=== PATIENT | male | born 2000 | race Hispanic/Latino ===

== ENCOUNTER 2019-02-23 19:17 | Emergency (ER) | payer OTHER, SELFPAY ==
[2019-02-23] MEDS ORDERED: Acetaminophen 500 MG TAB ONE (19:30)
== END 2019-02-23 21:30 | disposition home or self-care (01) ==
LOC: ERS 19:17
DX: B34.9 Viral infection, unspecified (principal); R00.0 Tachycardia, unspecified
CPT/HCPCS: 87804; 93005

== ENCOUNTER 2019-07-04 17:40 | Inpatient (IN) | payer SELFPAY ==
[2019-07-04 18:31] LABS: #Basophils 0.1 thou/uL (0.0-0.2); #Eosinphils 0.2 thou/uL (0.0-0.7); #Lymphocytes 1.5 thou/uL (1.20-3.40); #Monocytes 0.5 thou/uL (0.11-0.59); #Neutrophils 2.6 thou/uL (1.40-6.50); %Basophils 1.1 % (0.0-1.0); %Eosinophils 4.9 % (0.0-10.0); %Lymphocytes 31.6 % (28.0-48.0); %Monocytes 9.3 % (0.0-4.0); %Neutrophils 53.1 % (31.0-61.0); Hemoglobin 15.3 g/dL (14.0-18.0); Mean Corpuscular HGB CONC 33.2 g/dL (32.0-36.0); Mean Corpuscular Hemoglobin 29.9 pg (25.0-35.0); Mean Platelet Volume 7.1 fL (7.4-10.4); Platelet Count 346 thou/uL (130-400); RBC Distribution Width 12.3 % (11.5-14.5); Red Blood Cell (RBC) Count 5.13 mill/uL (4.00-5.20); White Blood Cell (WBC) Count 4.8 thou/uL (4.8-10.8)
[2019-07-04 18:38] LABS: Bilirubin Negative (Negative); Blood, Urine Negative (Negative); Glucose, Urine (Dipstick) Negative (Negative); Leukocyte Negative (Negative); Nitrite Negative (Negative); Protein, Urine (Dipstick) Trace mg/dL (Neg-Trace)
[2019-07-04 18:39] LABS: Clarity Clear (Clear)
[2019-07-04 18:52] LABS: Amphetamine Not Detected (NotDetected); Barbiturates Screen Not Detected (NotDetected); Benzodiazepine Screen Not Detected (NotDetected); Cocaine Metabolite Screen Not Detected (NotDetected); Medtox Control Line Valid? VALID (VALID); Medtox Reader # READER 4; Methadone Not Detected (NotDetected); Methamphetamine Not Detected (NotDetected); Opiate Screen Not Detected (NotDetected); Oxycodone Screen Not Detected (NotDetected); Phencyclidine (PCP) Not Detected (NotDetected); THC/Cannabinoid Screen Not Detected (NotDetected); Tricyclic Screen Not Detected (NotDetected)
[2019-07-04 18:55] LABS: Acetaminophen Less than 6.0 mcg/mL (10.0-30.0); Alcohol Less than 10 mg/dL (Less than 10); Salicylate Less than 8.0 mg/dL (15.0-30.0)
[2019-07-04 18:58] LABS: ALT (SGPT) 451 U/L (8-55); AST (SGOT) 186 U/L (10-45); Albumin 4.7 g/dL (3.5-5.0); Alkaline Phosphatase 128 U/L (50-130); Anion Gap 14 mmol/L (10-20); BUN (Urea Nitrogen) 14 mg/dL (8.4-21.0); Bilirubin, Total 0.5 mg/dL (0.2-1.2); CK (CPK) 102 U/L (30-200); Calc. Creatinine Clearance 0 mL/min (70-130); Calcium 9.5 mg/dL (7.8-10.44); Carbon Dioxide 26 mmol/L (22-29); Chloride 105 mmol/L (98-107); Estimated GFR-MDRD Greater than 90; Globulin 3.5 g/dL (2.4-3.5); Glucose 90 mg/dL (70-105); Potassium 4.2 mmol/L (3.5-5.1); Protein, Total 8.2 g/dL (6.0-8.3); Sodium 141 mmol/L (136-145)
[2019-07-04] MEDS ORDERED: predniSONE 20 MG TAB ONE (19:06)
[2019-07-04] MEDS ORDERED: diphenhydrAMINE 25 MG CAP ONE (19:06)
[2019-07-04] MEDS ORDERED: ACETYLCYSTEINE IV SCH ×3 (20:00→21:30)
[2019-07-04] MEDS ORDERED: DEXTROSE 5% IV SCH ×3 (20:00→21:30)
[2019-07-04] MEDS ORDERED: WATER IV SCH ×3 (20:00→21:30)
--- NOTE | 2019-07-04 20:39 | PDOC.FPRHP ---
- History of Present Illness Chief Complaint: Tylenol Ingestion History of Present Illness: Pt is a 18 yo male with PMH significant for ADHD no currently taking medication who presents to the emergency department for an episode of lightheadedness, blurry vision. He states he has been experiencing headaches for the last few weeks and has been taking tylenol until today. Today he took ibuprofen. His headaches are in the temporal region without radiation, no aura, photophobia. He is unsure how much tylenol he took but does not believe he took more than 1- 2 tabs of 500 mg tylenol per day. He was found to have transaminitis and started on the tylenol overdose protocol after discussion with poison control in the emergency department. He was given steroids, diphenhydramine for itching 2/2 n-acetylcysteine. He only takes multivitamins at home. He denies drug use, sexual activity, abnormal foods, fever, chills, n/v, diarrhea, constipation. He does have influenza contacts in his family. Otherwise he is fairly asymptomatic. Denies anxiety, increased stress, depression. - Allergies/Adverse Reactions Allergies Allergy/AdvReac Type Severity Reaction Status Date / Time acetaminophen Allergy Verified 07/04/19 23:01 ibuprofen Allergy Unverified 07/04/19 19:50 naproxen Allergy Verified 07/04/19 23:01 - Home Medications Medication Instructions Recorded Confirmed Type Multivitamin [Multiple Vitamins] 1 each PO DAILY 07/04/19 07/04/19 History - History PMHx: ADHD PSHx: none FHx: Grandmother - hepatitis, Grandfather - colon cancer at 36 yo, stomach cancer at 48 yo, Mother - hx of tylenol o/d, Uncle - Colon cancer at 24 yo, Aunt - Stomach cancer Social: denies alcohol, drugs, tobacco, no recent sexual intercourse - Review of Systems General: denies: fever/chills, weight/appetite/sleep changes Eyes: reports: vision changes. denies: eye pain ENT: denies: nasal congestion, rhinorrhea Respiratory: reports: cough, congestion. denies: shortness of breath, exercise intolerance Cardiovascular: denies: chest pain, palpitation, edema Gastrointestinal: denies: nausea, vomiting, diarrhea, constipation, GI bleeding Genitourinary: denies: incontinence, dysuria Skin: denies: rashes, lesions Musculoskeletal: denies: pain, tenderness Neurological: denies: numbness, syncope Psychological: denies: anxiety, depression - Vital signs BP: 146/87 HR: 85 RR: 15 Tmax: 98.2 Pox: 96% on RA Wt: 85.5 kg - Physical Exam Constitutional: NAD, awake, alert and oriented HEENT: PERRLA, EOMI Neck: FROM, no JVD Heart: RRR, normal S1/S2, no edema Lungs: CTAB, no respiratory distress, no wheezing Abdomen: soft, non-tender Musculoskeletal: normal structure, normal tone Neurological: no focal deficit, CN II-XII intact, normal sensation Skin: no rash/lesions, capillary refill <2 seconds Heme/Lymphatic: no purpura, no petechia Psychiatric: good judgment and insight -Psychiatric: Flat affect, makes eye contact FMR H&P: Results - Labs Result Diagrams: 07/04/19 18:23 07/04/19 18:23 Lab results: WBC 4.8 thou/uL (4.8-10.8) 07/04/19 18:23 Hgb 15.3 g/dL (14.0-18.0) 07/04/19 18:23 Hct 46.2 % (42.0-52.0) 07/04/19 18: MCV 90.0 fL (78.0-98.0) 07/04/19 18:23 Plt Count 346 thou/uL (130-400) 07/04/19 18:23 Neutrophils % 53.1 % (31.0-61.0) 07/04/19 18:23 Sodium 141 mmol/L (136-145) 07/04/19 18:23 Potassium 4.2 mmol/L (3.5-5.1) 07/04/19 18:23 Chloride 105 mmol/L (98-107) 07/04/19 18:23 Carbon Dioxide 26 mmol/L (22-29) 07/04/19 18:23 BUN 14 mg/dL (8.4-21.0) 07/04/19 18:23 Creatinine 0.88 mg/dL (0.7-1.3) 07/04/19 18:23 Glucose 90 mg/dL (70-105) 07/04/19 18:23 Lactic Acid 0.8 mmol/L (0.5-2.2) 07/04/19 19:15 Calcium 9.5 mg/dL (7.8-10.44) 07/04/19 18:23 Total Bilirubin 0.5 mg/dL (0.2-1.2) 07/04/19 18:23 AST 186 U/L (10-45) H 07/04/19 18:23 ALT 451 U/L (8-55) H 07/04/19 18:23 Alkaline Phosphatase 128 U/L (50-130) 07/04/19 18:23 Creatine Kinase 102 U/L (30-200) 07/04/19 18:23 Serum Total Protein 8.2 g/dL (6.0-8.3) 07/04/19 18:23 Albumin 4.7 g/dL (3.5-5.0) 07/04/19 18:23 Urine Ketones Trace mg/dL (Negative) A 07/04/19 18:26 Urine Blood Negative (Negative) 07/04/19 18:26 Urine Nitrite Negative (Negative) 07/04/19 18:26 Ur Leukocyte Esterase Negative (Negative) 07/04/19 18:26 FMR H&P: A/P - Problem List (1) Unintentional Tylenol overdose Current Visit: No Status: Acute Code(s): T39.1X1A - POISONING BY 4- AMINOPHENOL DERIVATIVES, ACCIDENTAL, INIT (2) Transaminitis Current Visit: No Status: Acute Code(s): R74.0 - NONSPEC ELEV OF LEVELS OF TRANSAMNS & LACTIC ACID DEHYDRGNSE - Plan Pt is a 18 yo male here for: # Tylenol Overdose Unknown ingested amount. Pt denies ingesting enough to cause toxicity. Poison control contacted and advised still adminstering n-acetylcysteine per protocol. Initial dose of n-acetylcysteine given at 2125 07/04/19. - tylenol overdose protocol initiated: N-acetylcysteine 150 mg/kg over 1 hour then 50 mg/kg over 4 hours then 100 mg/kg over 16 hours. Repeat liver enzymes at 19 hours - will discuss incident more with pt when mother is not involved. She controlled conversation. Mother also has a suicide attempt with tylenol ingestion. - diphenhydramine prn itching, steroids already given # Transaminitis - as above - Hepatitis A,B,C pending - RUQ u/s pending # Frontal Headache - resolved by time of interview Does not appear to be migraines - assess for increased stressors, will be worth discussing possible anxiety/ depression even though initially denied - no red flag symptoms # Family hx of colon cancer at young age - likely needs colonoscopy in outpt setting assuming this is not related to transaminitis Fluids: none Diet: Reg VTE: scd's Code: full Dispo: Admit to inpatient FMR H&P: Upper Level - Pertinent history 18 year old male presents to ED with vision changes and fatigue after taking ibuprofen for headache today. Patient has had intermittent frontal headaches for 2 weeks. He has been taking tylenol and ibuprofen. Patient states that he has taken a max of one tylenol per day, but he appears to be a poor historian in that regard. Mother states she has a bottle of extra strength tylenol at home that him and his brother share. The bottle is now empty as of today. Mother states that it was not completely full, but is uncertain how much was in it prior to these last few weeks. Mother had suicide attempt in the past by ingesting tylenol, so she was concerned. Patient has not had any history of depression in the past. He works at [employer] and has been exposed to sick contacts recently. Aside from hoarse voice and nasal congestion, he is not exhibiting many signs of infection. He does have siblings at home who have been exposed to the flu. Patient denies being sexually active currently. He has been in the past. Patient with history of ADHD, but not on any medications. Patient has had significant fatigue and has been sleeping more over the last few weeks. Poison control was called in ED. Patient started on NAC and labs to be drawn according to protocol. Acetaminophen level negative, but patient with unknown timing of possible ingestion. - Pertinent findings General: Alert and oriented x3. No acute distress. HEENT: MMM, no pharyngeal erythema, TM clear with visible cone of light, PERRL Card: RRR, no murmur Resp: CTA bilaterally, no acute distress Abdomen: Soft, non-tender to palpation Ext: No swelling or cyanosis - Plan Date/Time: 07/04/192038 IDomonique, have evaluated this patient and agree with findings/plan as outlined by paid intern resident. Pertinent changes/additions are listed here. Suspected acetaminophen toxicity with hepatotoxicity - Poison Control contacted by ED and Primary Team - Recommendations: 150 mg/kg NAC in hour 1, 50 mg/kg over hours 2-5, redraw CMP at hour 19 and if liver enzymes not back to normal range, then patient will be given 100 mg/kg over 16 hours - Will obtain RUQ ultrasound to further evaluate - Will obtain hepatitis panel - Acetaminophen level neg; but poison control reports they have seen it negative before, and liver enzymes can still continue to rise - Patient poor historian; mother in room, so not sure if patient being completely truthful about amount of ingestion - Screen for depression - Will place on telemetry for continued monitoring - PT/PTT/INR pending Transaminitis likely 2/2 acetaminophen ingestion/toxicity - See plan as above - Will obtain RUQ sono and hepatitis panel to further evaluate - Repeat CMP in 19 hours Recurrent frontal headaches - Patient states headache absent currently, they come and go and are not associated with any particular trigger - Continue to monitor - Headache protocol as appropriate - No red flag symptoms - Not consistent with migraines ADHD - Not on medication Suspect depression - Flat affect noted during evaluation - Patient poor historian when it came to timing and amount of ingestion - FH of depression with suicide attempt (mother) - Screen for depression FH colon cancer - Extensive family history with one relative diagnosed in 20's with colostomy - Recommend outpatient colonoscopy DVT PPX: SCD's GI PPX: None Code Status: Full Dispo: Admit to telemetry. Anticipate LOS >48 hours.
[2019-07-04 22:18] LABS: HBSAB Concentration 0.92 mIU/mL; HBSAg Index 0.19 S/CO (0-0.99); Hep B Core Total Ab Non-Reactive (NonReactive); Hep B Core Total Index 0.05 S/CO (0-0.79); Hep B Surf AB Non-Reactive (NonReactive); Hep B Surf Ag Non-Reactive S/CO (NonReactive); Hep C IgG Ab Non-Reactive (NonReactive); Hep C Index 0.11 S/CO (0-0.79)
[2019-07-04 23:09] VITALS: BMI 30.6
[2019-07-04] MEDS ORDERED: Lactated Ringer's 1,000 ML IV SCH (23:15)
[2019-07-04 23:37] LABS: Prothrombin Time 13.1 SEC (12.0-14.7)
[2019-07-04 23:38] LABS: Phosphorus 1.7 mg/dL (2.3-4.7)
[2019-07-04] MEDS ORDERED: diphenhydrAMINE 25 MG in Sodium Chloride 0.9% 50 ML IVPB PRN ×2 (23:43→23:45)
[2019-07-04] MEDS ORDERED: diphenhydrAMINE 50 MG/ML VIAL IVP PRN (23:50)
[2019-07-04] MEDS ORDERED: PHOS-NAK 1 PKT PACK PO SCH (23:59)
[2019-07-05] MEDS ORDERED: DEXTROSE 5% IV SCH (02:30)
[2019-07-05] MEDS ORDERED: WATER IV SCH (02:30)
[2019-07-05] MEDS ORDERED: ACETYLCYSTEINE IV SCH (02:30)
--- NOTE | 2019-07-05 05:54 | PDOC.FM ---
- Subjective Subjective: Pt denies headache this morning Complains of 10/10 periumbilical abdominal pain - denies n/v/d/c. States this all happened this morning No fevers, chills, or acute events overnight. Mother and pt informed us that when he was taking the tylenol consistently it was 1.5mo ago when he had influenza. - Objective Vital Signs & Weight: Vital Signs (12 hours) Temp Pulse Resp BP Pulse Ox 07/05/19 03:19 98.1 F 74 14 119/58 L 96 07/05/19 00:00 95 07/04/19 22:46 99.1 F 78 17 127/67 95 Weight Weight 86.046 kg I&O: 07/03/19 07/04/19 07/05/19 06:59 06:59 06:59 Intake Total 980 Output Total 300 Balance 680 Result Diagrams: 07/04/19 18:23 07/04/19 18:23 Phys Exam - Physical Examination Constitutional: NAD HEENT: moist MMs, sclera anicteric Neck: full ROM Respiratory: clear to auscultation bilateral Cardiovascular: RRR, no significant murmur Gastrointestinal: soft, no distention, positive bowel sounds Periumbilical tenderness with deep palpation, no peritoneal signs Musculoskeletal: no edema, pulses present Neurological: non-focal, moves all 4 limbs Psychiatric: A&O x 3 Deviation from normal: Flat affect Skin: no rash, cap refill <2 seconds Dx/Plan (1) Transaminitis Code(s): R74.0 - NONSPEC ELEV OF LEVELS OF TRANSAMNS & LACTIC ACID DEHYDRGNSE Status: Acute (2) Unintentional Tylenol overdose Code(s): T39.1X1A - POISONING BY 4-AMINOPHENOL DERIVATIVES, ACCIDENTAL, INIT Status: Acute Qualifiers: Encounter type: initial encounter Qualified Code(s): T39.1X1A - Poisoning by 4-Aminophenol derivatives, accidental (unintentional), initial encounter (3) Persistent headaches Code(s): R51 - HEADACHE Status: Acute - Plan Plan: Pt is a 18 yo male here for: Suspected Tylenol Overdose - Initial dose of n-acetylcysteine given at 2125 07/04/19. - Tylenol overdose protocol initiated: - Pt has received N-acetylcysteine 150 mg/kg over 1 hour then 50 mg/kg over 4 hours - Currently receiving 100 mg/kg over 16 hours. Repeat liver enzymes at 19 hours following initiation of therapy - Diphenhydramine prn itching Transaminitis - Abdominal pain - Hepatitis A,B,C panel negative - HIV/RPR ordered - CT abdomen this morning Frontal Headache - Described as tension headache characteristics - No red flag symptoms Family hx of colon and gastric cancers at young age - Will need colonoscopy in outpt setting Fluids: None Diet: Reg VTE: Scd's Code: Full Dispo: Admit to inpatient for NAC and abdominal pain monitoring and evaluation.
[2019-07-05 07:50] LABS: HIV (1/2) Antibody/Antigen Non-Reactive (NonReactive); HIV 1/2 INDEX 0.16 S/CO (<1.00); Syphilis Antibody Nonreactive (Nonreactive); Syphilis Antibody Index 0.07 S/CO (<1.00 Non-Reactive)
--- NOTE | 2019-07-05 10:34 | CT ---
CT abdomen and pelvis with IV and oral contrast HISTORY: Abnormal liver function tests. Abdomen pain. FINDINGS: The superiormost images show ill-defined parenchymal infiltrate within the lateral basilar segment of the left lower lobe. No pleural fluid. The liver, spleen, right kidney, adrenal glands, and pancreas have a normal CT appearance. Tiny cyst within the medial cortex of the left kidney. No evidence of bowel obstruction. Appendix is not inflamed. Urinary bladder is unremarkable. IMPRESSION: Left lateral lung base infiltrate. Consider pneumonia. No acute abnormalities of the abdomen demonstrated.
[2019-07-05 10:44] LABS: MONO NEGATIVE CONTROL ZONE White (Negative) (White); MONO POSITIVE CONTROL Pink Line (Positive) (PINK/RED); Mononucleosis NEGATIVE (NEGATIVE)
[2019-07-05] MEDS ORDERED: Azithromycin 250 MG TAB PO SCH (12:00)
[2019-07-05] MEDS ORDERED: Iopamidol 370 76% 100 ML VIAL ONE (14:33)
[2019-07-05 18:48] LABS: ALT (SGPT) 369 U/L (8-55); AST (SGOT) 129 U/L (10-45); Acetaminophen Less than 6.0 mcg/mL (10.0-30.0); Albumin 4.3 g/dL (3.5-5.0); Alkaline Phosphatase 124 U/L (50-130); Anion Gap 12 mmol/L (10-20); BUN (Urea Nitrogen) 11 mg/dL (8.4-21.0); Bilirubin, Total 0.3 mg/dL (0.2-1.2); Calc. Creatinine Clearance 193 mL/min (70-130); Carbon Dioxide 23 mmol/L (22-29); Chloride 107 mmol/L (98-107); Estimated GFR-MDRD Greater than 90; Globulin 3.3 g/dL (2.4-3.5); Glucose 134 mg/dL (70-105); Magnesium 1.8 mg/dL (1.7-2.2); Phosphorus 2.9 mg/dL (2.3-4.7); Potassium 3.4 mmol/L (3.5-5.1); Protein, Total 7.6 g/dL (6.0-8.3); Sodium 139 mmol/L (136-145)
[2019-07-05] MEDS ORDERED: DEXTROSE 5% IVPB SCH (20:45)
[2019-07-05] MEDS ORDERED: ACETYLCYSTEINE IVPB SCH (20:45)
[2019-07-05] MEDS ORDERED: WATER IVPB SCH (20:45)
[2019-07-05] MEDS: ACETYLCYSTEINE IV SCH ×2 (21:23→21:48)
[2019-07-05] MEDS: DEXTROSE 5% IV SCH ×2 (21:23→21:48)
[2019-07-05] MEDS: WATER IV SCH ×2 (21:23→21:48)
--- NOTE | 2019-07-06 04:23 | HP ---
HISTORY OF PRESENT ILLNESS: Please see the history and physical done by the residents, for which I agree as well. A kind of an unusual case. This gentleman came in with a lot of vague symptoms. It sounds like he got very hot and flushed at work and has recently been having headaches. He was given ibuprofen for headache. Before this, has never had a reaction to ibuprofen. He admits that he has been coughing a little bit lately. It was unclear if this was fever or what it was. He felt just overall weak, almost near syncope, called his mom, then went to the emergency room and was found to have elevated liver function tests. There was some question that this could potentially be from Tylenol overdose, although it does not sound like he is really taking Tylenol consistently since he had flu some 6 to 8 weeks ago, but nonetheless, Poison Control was called and acetylcysteine was started and he is on the Tylenol protocol for that. The Tylenol level was basically 0. But on exam, did have some crackles in the left base consistent with pneumonia, even though he is not coughing that much and not really having fevers. White count is normal, but the CT picked that up that he has an infiltrate there. PAST MEDICAL HISTORY: All per the resident's history and physical, for which I agree. PAST SURGICAL HISTORY: All per the resident's history and physical, for which I agree. FAMILY HISTORY: All per the resident's history and physical, for which I agree. ALLERGIES: ALL PER THE RESIDENT'S HISTORY AND PHYSICAL, FOR WHICH I AGREE. REVIEW OF SYSTEMS: All per the resident's history and physical, for which I agree. PHYSICAL EXAMINATION: VITAL SIGNS: Afebrile. Vital signs are stable. GENERAL: Alert and oriented x3. No apparent distress. HEENT: Anicteric. ENT is normal otherwise. CHEST: Does have some crackles in the left base, even a little bit of wheeze down there. HEART: Regular rate and rhythm. ABDOMEN: Benign. I do not really appreciate hepatosplenomegaly. EXTREMITIES: No edema. ASSESSMENT: 1. Elevated liver function tests, unclear etiology, viral, etc. 2. Left lower lobe infiltrate, assuming community-acquired pneumonia. PLAN: I am going to cover him with a Z-Taj and go ahead and finish the Tylenol overdose potential protocol. Recheck liver function tests this afternoon. As long as they are okay after 19 hours, should be able to be discharged home, and we can just follow his liver function tests as an outpatient and will also follow lung function and lung exam as an outpatient as well. Job ID: [id number]
--- NOTE | 2019-07-06 08:13 | ULT ---
RIGHT UPPER QUADRANT ULTRASOUND: Date: 07/06/2019 INDICATION: Elevated LFTs and periumbilical abdominal pain. COMPARISON: CT abdomen and pelvis dated 07/05/2019. FINDINGS: There is diffuse fatty infiltration with scattered areas of focal fatty sparing predominantly within the left hepatic lobe. The gallbladder is normal appearing. No sonographic Lee's sign reported. Co mmon bile duct measures 4.6 mm. Pancreas largely obscured. Right kidney measures 10.4 x 5.2 x 5.7 cm. No focal renal lesion is evident. No free fluid is evident. IMPRESSION: 1. Fatty infiltration with areas of focal fatty sparing within the left hepatic lobe. 2. No additional acute sonographic abnormality. POS: BH
[2019-07-06] MEDS ORDERED: Azithromycin 250 MG TAB PO SCH ×2 (09:00)
[2019-07-06 09:58] LABS: Cardiac Risk 3.7 (Less than 4.5)
--- NOTE | 2019-07-06 11:07 | PDOC.FM ---
- Subjective Subjective: Pt doing well with no abdominal pain. no fever/chills, no nausea/vomiting - Objective Vital Signs & Weight: Vital Signs (12 hours) Temp Pulse Resp BP Pulse Ox 07/06/19 09:09 98.1 F 63 15 119/66 94 L 07/06/19 03:49 97.4 F L 87 17 126/67 96 Weight Weight 86.046 kg I&O: 07/05/19 07/06/19 07/07/19 06:59 06:59 06:59 Intake Total 1100 Output Total 300 Balance 800 Result Diagrams: 07/04/19 18:23 07/05/19 18:15 Phys Exam - Physical Examination Constitutional: NAD HEENT: moist MMs, sclera anicteric Neck: supple, full ROM Respiratory: no wheezing, clear to auscultation bilateral Cardiovascular: RRR, no significant murmur Gastrointestinal: soft, non-tender Musculoskeletal: no edema, pulses present Neurological: normal sensation, moves all 4 limbs Psychiatric: normal affect, A&O x 3 Skin: no rash, normal turgor Dx/Plan (1) Unintentional Tylenol overdose Code(s): T39.1X1A - POISONING BY 4-AMINOPHENOL DERIVATIVES, ACCIDENTAL, INIT Status: Acute Qualifiers: Encounter type: initial encounter Qualified Code(s): T39.1X1A - Poisoning by 4-Aminophenol derivatives, accidental (unintentional), initial encounter (2) Persistent headaches Code(s): R51 - HEADACHE Status: Acute (3) Transaminitis Code(s): R74.0 - NONSPEC ELEV OF LEVELS OF TRANSAMNS & LACTIC ACID DEHYDRGNSE Status: Acute - Plan Plan: Suspected Tylenol Overdose A- liver enzymes improving but merriting continued NAC Tx. Currently receiving 100 mg/kg over 16 hours. This regimen will be completed at 1830 today. P- continue NAC -will contact poison controll for further recs -possible DC tonight - Diphenhydramine prn itching Transaminitis - Abdominal pain A- likely 2/2 above. US this AM showed fatty infiltration. Hepatitis A,B,C panel negative. HIV/RPR negative. CT abd unremarkable. P- continue plan as above -advised healthy diet Frontal Headache - Described as tension headache characteristics. No red flag symptoms Family hx of colon and gastric cancers at young age - Will need colonoscopy in outpt setting Code: Full Addendum - Attending - Attending Attestation Date/Time: 07/06/19 1121 I personally evaluated the patient and discussed the management with Dr. Romero. I agree with the History, Examination, Assessment and Plan documented above with any addition or exceptions noted below. The etiology of his liver injury is not completely clear. He was certainly taking more than recommended APAP during the flu, with at least 4g/day for ~1 week per mother. No reported ETOH. He did not have nausea/vomiting during this time. Fatty liver noted on sono. Negative infectious workup. Would repeat labs per protocol and include AI workup with outpatient follow up after touching base with poison control. Does not need tele currently.
[2019-07-06 17:18] LABS: ALT (SGPT) 467 U/L (8-55); AST (SGOT) 168 U/L (10-45); Acetaminophen Less than 6.0 mcg/mL (10.0-30.0); Albumin 4.3 g/dL (3.5-5.0); Alkaline Phosphatase 125 U/L (50-130); Anion Gap 12 mmol/L (10-20); BUN (Urea Nitrogen) 10 mg/dL (8.4-21.0); Bilirubin, Total 0.6 mg/dL (0.2-1.2); Calc. Creatinine Clearance 193 mL/min (70-130); Calcium 9.2 mg/dL (7.8-10.44); Carbon Dioxide 26 mmol/L (22-29); Chloride 105 mmol/L (98-107); Estimated GFR-MDRD Greater than 90; Globulin 3.2 g/dL (2.4-3.5); Glucose 97 mg/dL (70-105); Potassium 3.6 mmol/L (3.5-5.1); Protein, Total 7.5 g/dL (6.0-8.3); Sodium 139 mmol/L (136-145)
--- NOTE | 2019-07-06 19:30 | PDOC.EVN ---
Event Note - Event Note Event Note: Discussed case with Poison Control Staff and Security Tester at Poison Control after receiving an AST level > 93 although the INR was WNL. Security Tester believes if pt had an actual tylenol overdose the damage to the liver would have already taken effect at this time and the transaminitis could be secondary to other pathology. He recommended repeating CMP, phosphorous, lactic acid, and INR in the morning as well as monitoring mental status. Of note pt does have fatty infiltration on a RUQ U/S.
[2019-07-07 05:20] LABS: INR-International Normal Ratio 0.9; Prothrombin Time 12.6 SEC (12.0-14.7)
[2019-07-07 05:54] LABS: Lactic Acid 0.9 mmol/L (0.5-2.2)
[2019-07-07 06:07] LABS: ALT (SGPT) 462 U/L (8-55); AST (SGOT) 169 U/L (10-45); Albumin 4.1 g/dL (3.5-5.0); Alkaline Phosphatase 113 U/L (50-130); Anion Gap 11 mmol/L (10-20); BUN (Urea Nitrogen) 12 mg/dL (8.4-21.0); Bilirubin, Total 0.6 mg/dL (0.2-1.2); Calc. Creatinine Clearance 207 mL/min (70-130); Calcium 9.2 mg/dL (7.8-10.44); Carbon Dioxide 26 mmol/L (22-29); Chloride 107 mmol/L (98-107); Estimated GFR-MDRD Greater than 90; Glucose 86 mg/dL (70-105); Protein, Total 7.1 g/dL (6.0-8.3); Sodium 140 mmol/L (136-145)
--- NOTE | 2019-07-07 08:23 | PDOC.FM ---
- Subjective Subjective: Doing well overnight, no GI sx. no acute events no abdominal pain, no nausea/vomiting, no fever/chills - Objective Vital Signs & Weight: Vital Signs (12 hours) Temp Pulse Resp BP Pulse Ox 07/07/19 04:00 97.5 F L 80 16 109/60 96 07/07/19 00:00 65 18 Weight Weight 86.046 kg Result Diagrams: 07/04/19 18:23 07/07/19 04:35 Phys Exam - Physical Examination Constitutional: NAD HEENT: moist MMs, sclera anicteric Neck: supple, full ROM Respiratory: no wheezing, clear to auscultation bilateral Cardiovascular: RRR, no significant murmur Gastrointestinal: soft, non-tender Musculoskeletal: no edema, pulses present Neurological: normal sensation, moves all 4 limbs Psychiatric: normal affect, A&O x 3 Skin: no rash, normal turgor Dx/Plan (1) Unintentional Tylenol overdose Code(s): T39.1X1A - POISONING BY 4-AMINOPHENOL DERIVATIVES, ACCIDENTAL, INIT Status: Acute Qualifiers: Encounter type: initial encounter Qualified Code(s): T39.1X1A - Poisoning by 4-Aminophenol derivatives, accidental (unintentional), initial encounter (2) Persistent headaches Code(s): R51 - HEADACHE Status: Acute (3) Transaminitis Code(s): R74.0 - NONSPEC ELEV OF LEVELS OF TRANSAMNS & LACTIC ACID DEHYDRGNSE Status: Acute - Plan Plan: Suspected Tylenol Overdose A- Last night AST/ALT had worsened, discussed with retail furniture sales with poison controll. This could be new baseline of liver enzymes. Likely multifactoral tylenol OD and fatty liver infiltration. P- pt ready for DC home and outpt f/u -f/u on autoimmune labs Transaminitis - Abdominal pain A- likely 2/2 above P- continue plan as above -advised healthy diet Frontal Headache - Described as tension headache characteristics. No red flag symptoms Family hx of colon and gastric cancers at young age - Will need colonoscopy in outpt setting Code: Full Addendum - Attending - Attending Attestation Date/Time: 07/07/19 1150 I personally evaluated the patient and discussed the management with Dr. Romero. I agree with the History, Examination, Assessment and Plan documented above with any addition or exceptions noted below.
[2019-07-07 12:27] VITALS: BP 115/73; TEMP 98.2
[2019-07-07 15:34] LABS: Ref Lab Test Ordered SLA; Reference Lab Name LABCORP
[2019-07-07 15:35] LABS: Reference Lab Name LABCORP
[2019-07-08 14:13] LABS: Smooth Muscle Total ABS 8 Units (0-19)
--- NOTE | 2019-07-08 16:39 | DIS ---
DATE OF ADMISSION: 07/04/2019 DATE OF DISCHARGE: 07/07/2019 ADMITTING ATTENDING: Dr. Bret Rojas. DISCHARGE ATTENDING: Adolfo Barnhart MD RESIDENT: Maco Romero MD I personally saw the patient for a total of 2 days. CONSULTS: Poison Control. PROCEDURES: 1. Abdomen pelvis CT on 07/05/2019; impression, left lateral lung base infiltrate, consider pneumonia. No abnormalities of abdomen demonstrated. 2. On 07/06/2019, abdomen ultrasound; impression, fatty infiltration of liver with areas of focal fatty sparing within the left hepatic lobe. No additional sonographic abnormality. DISCHARGE MEDICATIONS: Multivitamin. DISCONTINUED MEDICATIONS: None. PRIMARY DIAGNOSIS: Elevated transaminases secondary to Tylenol overdose, unintentional. SECONDARY DIAGNOSES: Fatty liver disease and family history of colon and gastric cancers at young age. HISTORY OF PRESENT ILLNESS AND HOSPITAL COURSE: This is a 18-year-old male who presented to the ER and was found to have elevated AST and ALT. It was later found out that the patient had ingested an exorbitant amount of Tylenol 1 month prior to presentation. During the week that he had the flu, he was taking at least 6 g of Tylenol per day for about a week or week and a half, though the patient was a relatively poor historian. The patient was started on NAC protocol per recommendations of Poison Control. He completed this regimen, but then had an additional 16 hours of NAC as his liver enzymes were still elevated, though they were downtrending. After this additional 16 hours, enzymes remained somewhat high. An ultrasound of the right upper quadrant showed a fatty liver and so I thought that his elevated transaminases were secondary to a multifactorial etiology including the Tylenol ingestion and fatty liver. Poison Control was consulted again, which recommended outpatient followup and autoimmune hepatitis labs. Of note, a CT scan did show evidence of possible pneumonia in the lower lobe; however, the patient was asymptomatic and not showing clinical signs of pneumonia and was discharged without antibiotics. DISPOSITION: Stable. DISCHARGE INSTRUCTIONS: 1. Location: Home. 2. Activity: As tolerated. 3. Followup: Follow up with [facility] in 7 days. Job ID: [id number]
[2019-07-09 12:29] LABS: ANA Symphony (Qualitative) Negative (Negative); ANA Symphony (Quantitative) 0.2 Ratio (< 0.7 Negative); EliA Vaculitis New Method **** NEW METHOD ****; Mitochondrial Ab 1.1 U/mL (<4 Negative); dsDNA IgG Antibody 0.8 IU/mL (<10 Negative)
[2019-07-09 13:14] LABS: Cytoplasmic (C-ANCA) <1:20 titer (Neg:<1:20); Myeloperoxidase AutoAbs <9.0 U/mL (0.0-9.0); Perinuclear (P-ANCA) <1:20 titer (Neg:<1:20); Proteinase-3 AutoAbs Less than 3.5 U/mL (0.0-3.5)
== END 2019-07-07 15:50 | disposition home or self-care (01) | DRG 918 ==
LOC: ERS 17:40 → OBSVTOIN 19:41 → 2SW 19:41 → 2NO 07-05 14:23 → T4-A 07-07 09:51
PROVIDERS: ADMIT Family Medicine; ATTEND Family Medicine
DX: T39.1X1A Poisoning by 4-Aminophenol derivatives, accidental (unintentional), initial encounter (principal); K76.0 Fatty (change of) liver, not elsewhere classified; F90.9 Attention-deficit hyperactivity disorder, unspecified type; R51 Headache; R74.0 Nonspecific elevation of levels of transaminase and lactic acid dehydrogenase [LDH]; Z80.0 Family history of malignant neoplasm of digestive organs; Z88.6 Allergy status to analgesic agent
CPT/HCPCS: 36415; 74177; 76705; 80053; 80061; 80306; 80307; 81003; 82550; 83516; 83520; 83605; 83735; 84100; 84443; 85025; 85610; 86038; 86225; 86256; 86308; 86704; 86706; 86708; 86780; 86803; 87340; 87389; 93005; 96365; J0132; J1200; J7070; J7512; Q0163; Q9967

== ENCOUNTER 2020-04-01 13:08 | Emergency (ER) | payer SELFPAY | END 2020-04-01 14:32 | disposition home or self-care (01) | LOC: ERS 13:08 | DX: L60.0 Ingrowing nail (principal) | CPT/HCPCS: 99283 ==

== ENCOUNTER 2020-05-26 18:17 | Emergency (ER) | payer SELFPAY ==
[2020-05-27 06:45] LABS: SARS-CoV-2 PCR by NAA Not Detected (NotDetected)
== END 2020-05-26 19:54 | disposition home or self-care (01) ==
LOC: ERS 18:17
DX: R43.8 Other disturbances of smell and taste (principal); Z20.822 Contact with and (suspected) exposure to COVID-19
CPT/HCPCS: 87635; 99283; U0003; U0005

== ENCOUNTER 2020-08-02 08:12 | Emergency (ER) | payer SELFPAY | END 2020-08-02 10:42 | disposition home or self-care (01) | LOC: ERS 08:12 | DX: L60.0 Ingrowing nail (principal); K76.0 Fatty (change of) liver, not elsewhere classified | CPT/HCPCS: 99283 ==

== ENCOUNTER 2022-06-02 23:58 | Emergency (ER) | payer SELFPAY ==
[2022-06-03] MEDS ORDERED: diphenhydrAMINE 25 MG CAP ONE (00:24)
[2022-06-03] MEDS ORDERED: Famotidine 20 MG TAB ONE (00:24)
[2022-06-03] MEDS ORDERED: Dexamethasone 4 MG TAB ONE (01:49)
== END 2022-06-03 02:21 | disposition home or self-care (01) ==
LOC: ERS 23:58
DX: L50.9 Urticaria, unspecified (principal)
CPT/HCPCS: 71045; 93005; J8540

== ENCOUNTER 2022-09-03 09:36 | Emergency (ER) | payer SELFPAY ==
[2022-09-03 10:48] LABS: #Eosinphils 0.1 thou/uL (0.0-0.7); #Monocytes 0.5 thou/uL (0.11-0.59); #Neutrophils 4.5 thou/uL (1.40-6.50); %Basophils 0.4 % (0.0-1.0); %Monocytes 7.3 % (0.0-10.0); %Neutrophils 63.9 % (42.0-75.0); Mean Corpuscular HGB CONC 31.5 g/dL (32.0-36.0); Mean Corpuscular Hemoglobin 28.7 pg (27.0-31.0); Mean Corpuscular Volume 91.2 fl (78.0-98.0); Mean Platelet Volume 9.5 fL (7.4-10.4); Platelet Count 338 10x3/uL (130-400); RBC Distribution Width 12.7 % (11.5-14.5); Red Blood Cell (RBC) Count 5.22 mill/uL (4.70-6.10)
[2022-09-03 11:17] LABS: ALT (SGPT) 156 U/L (8-55); AST (SGOT) 58 U/L (5-34); Albumin 4.8 g/dL (3.5-5.0); Alkaline Phosphatase 98 U/L (40-110); Anion Gap 12 mmol/L (10-20); BUN (Urea Nitrogen) 15 mg/dL (8.9-20.6); Bilirubin, Total 0.5 mg/dL (0.2-1.2); Calc. Creatinine Clearance 0 mL/min (70-130); Carbon Dioxide 26 mmol/L (22-29); Chloride 105 mmol/L (98-107); Estimated GFR 128; Globulin 3.5 g/dL (2.4-3.5); Glucose 94 mg/dL (70-105); Lipase 10 U/L (8-78); Potassium 4.3 mmol/L (3.5-5.1); Protein, Total 8.3 g/dL (6.0-8.3); Sodium 139 mmol/L (136-145)
== END 2022-09-03 12:20 | disposition home or self-care (01) ==
LOC: ERS 09:36
DX: K52.9 Noninfective gastroenteritis and colitis, unspecified (principal)
CPT/HCPCS: 36415; 80053; 83690; 85025; 99284

== ENCOUNTER 2023-01-09 08:11 | Emergency (ER) | payer SELFPAY ==
[2023-01-09 09:50] LABS: #Eosinphils 0.2 thou/uL (0.0-0.7); #Monocytes 0.5 thou/uL (0.11-0.59); #Neutrophils 3.6 thou/uL (1.40-6.50); %Basophils 0.3 % (0.0-1.0); %Eosinophils 2.6 % (0.0-10.0); %Lymphocytes 29.2 % (21.0-51.0); %Monocytes 7.9 % (0.0-10.0); %Neutrophils 59.7 % (42.0-75.0); Hematocrit 44.2 % (42.0-52.0); Hemoglobin 14.8 g/dL (14.0-18.0); Mean Corpuscular HGB CONC 33.5 g/dL (32.0-36.0); Mean Corpuscular Volume 89.7 fl (78.0-98.0); Mean Platelet Volume 9.3 fL (7.4-10.4); Platelet Count 319 10x3/uL (130-400); RBC Distribution Width 12.9 % (11.5-14.5); Red Blood Cell (RBC) Count 4.93 mill/uL (4.70-6.10); White Blood Cell (WBC) Count 6.1 10x3/uL (4.8-10.8)
[2023-01-09] MEDS ORDERED: Ondansetron PF 4 MG/2 ML Vial ONE (10:19)
[2023-01-09] MEDS ORDERED: Famotidine/PF 20 mg/2ml Vial ONE (10:19)
[2023-01-09 10:25] LABS: ALT (SGPT) 174 U/L (8-55); AST (SGOT) 70 U/L (5-34); Albumin 4.6 g/dL (3.5-5.0); Alkaline Phosphatase 97 U/L (40-110); Anion Gap 13 mmol/L (10-20); BUN (Urea Nitrogen) 18 mg/dL (8.9-20.6); Bilirubin, Total 0.6 mg/dL (0.2-1.2); Calc. Creatinine Clearance 0 mL/min (70-130); Calcium 9.6 mg/dL (7.8-10.44); Carbon Dioxide 25 mmol/L (22-29); Chloride 105 mmol/L (98-107); Estimated GFR 127; Globulin 3.3 g/dL (2.4-3.5); Glucose 93 mg/dL (70-105); Protein, Total 7.9 g/dL (6.0-8.3); Sodium 139 mmol/L (136-145)
[2023-01-09 10:26] LABS: Troponin I Less than 0.010 ng/mL (< 0.028)
== END 2023-01-09 11:04 | disposition home or self-care (01) ==
LOC: ERS 08:11
DX: K92.0 Hematemesis (principal); R51.9 Headache, unspecified; R79.89 Other specified abnormal findings of blood chemistry
CPT/HCPCS: 70450; 71045; 80053; 84484; 85025; 93005; J2405; S0028

== ENCOUNTER 2023-06-15 21:34 | Emergency (ER) | payer SELFPAY ==
[2023-06-15] MEDS ORDERED: diphenhydrAMINE 50 MG/ML VIAL ONE (23:28)
[2023-06-15] MEDS ORDERED: Acetaminophen 500 MG TAB ONE (23:28)
[2023-06-15] MEDS ORDERED: Metoclopramide HCl 10 MG (2 mL) VIAL ONE (23:29)
== END 2023-06-16 01:31 | disposition home or self-care (01) ==
LOC: ERS 21:34
DX: R51.9 Headache, unspecified (principal)
CPT/HCPCS: 96374; 96375; J1200; J2765

== ENCOUNTER 2023-09-06 19:27 | Emergency (ER) | payer SELFPAY ==
[~2023-09-06 19:27] MED LIST: Iopamidol-370 76% 500 ML MDV (1 ML CHARGE) ONE
[2023-09-06] MEDS ORDERED: Ondansetron PF 4 MG/2 ML Vial ONE (20:17)
[2023-09-06] MEDS ORDERED: Morphine 4 MG/ML VIAL ONE (20:17)
[2023-09-06 20:44] LABS: #Basophils 0.04 10x3/uL (0.0-0.2); %Basophils 0.5 % (0.0-1.0); %Eosinophils 2.8 % (0.0-10.0); %Lymphocytes 22.9 % (21.0-51.0); %Neutrophils 64.6 % (42.0-75.0); Hematocrit 46.5 % (42.0-52.0); Hemoglobin 15.7 g/dL (14.0-18.0); Mean Corpuscular HGB CONC 33.8 g/dL (32.0-36.0); Mean Corpuscular Hemoglobin 29.6 pg (27.0-31.0); Mean Corpuscular Volume 87.7 fL (78.0-98.0); Mean Platelet Volume 9.3 fL (7.4-10.4); Platelet Count 331 10x3/uL (130-400); RBC Distribution Width 12.3 % (11.5-14.5)
[2023-09-06 20:46] LABS: Bilirubin Negative (Negative); Blood, Urine Negative (Negative); Glucose, Urine (Dipstick) Negative (Negative); Ketone, Urine Negative (Negative); Leukocyte Negative (Negative); Nitrite Negative (Negative); Protein, Urine (Dipstick) Negative (Neg-Trace); Urobilinogen 0.2 mg/dL (Less than 2)
[2023-09-06 20:50] LABS: CAUTI Indications for Culture Pelvic or flank pain; RBC/HPF 0-3 HPF (0-3); Squamous Epithelial None Seen HPF (0-3); WBC/HPF 0-3 HPF (0-3)
[2023-09-06 20:51] LABS: Bacteria/HPF Rare-Few HPF (None Seen); Clarity Clear (Clear)
[2023-09-06 20:52] LABS: Urine Culture Reflex No No
[2023-09-06 20:59] LABS: ALT (SGPT) 207 U/L (8-55); AST (SGOT) 72 U/L (5-34); Albumin 4.1 g/dL (3.5-5.0); Alkaline Phosphatase 108 U/L (40-110); Anion Gap 14 mmol/L (10-20); BUN (Urea Nitrogen) 13 mg/dL (8.9-20.6); Bilirubin, Total 0.5 mg/dL (0.2-1.2); Calc. Creatinine Clearance 0 mL/min (70-130); Calcium 9.9 mg/dL (7.8-10.44); Carbon Dioxide 27 mmol/L (22-29); Chloride 104 mmol/L (98-107); Estimated GFR 95; Globulin 4.2 g/dL (2.4-3.5); Glucose 90 mg/dL (70-105); Lipase 17 U/L (8-78); Protein, Total 8.3 g/dL (6.0-8.3); Sodium 141 mmol/L (136-145)
[2023-09-06] MEDS ORDERED: Dicyclomine 20 MG TAB ONE (21:34)
== END 2023-09-06 21:37 | disposition home or self-care (01) ==
LOC: ERS 19:27
DX: R10.30 Lower abdominal pain, unspecified (principal)
CPT/HCPCS: 36415; 74177; 80053; 81001; 83690; 85025; 96374; 96375; J2270; J2405; Q9967